=== PATIENT | male | born 1965 | race Caucasian/White ===

== ENCOUNTER 2016-08-20 12:04 | Emergency (ER) | payer OTHER ==
[~2016-08-20] VITALS: Ht 160 cm; Wt 78.3 kg
[~2016-08-20 12:04] MED LIST: ASPI-664 PO; GEMF600T PO; SITA1TAB3 PO
[2016-08-20 12:06] VITALS: Ht 160 cm; Wt 78.3 kg
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
[2016-08-20] MEDS ORDERED: NAPR-260 PO (14:58)
[2016-08-20] MEDS ORDERED: HYDR-902 PO ×2 (14:58→15:09)
[2016-08-20] MEDS ORDERED: CYCL-319 PO (14:58)
== END 2016-08-20 14:56 | disposition home or self-care (01) ==
LOC: E/R 12:04
DX: S16.1XXA Strain of muscle, fascia and tendon at neck level, initial encounter (principal); S39.012A Strain of muscle, fascia and tendon of lower back, initial encounter; E11.9 Type 2 diabetes mellitus without complications; I10 Essential (primary) hypertension; V49.00XA Driver injured in collision with unspecified motor vehicles in nontraffic accident, initial encounter; Z79.82 Long term (current) use of aspirin
CPT/HCPCS: 99284